=== PATIENT | female | born 1945 | race Caucasian/White ===

== ENCOUNTER 2019-06-24 16:56 | Emergency (ER) | payer OTHER ==
[~2019-06-24] VITALS: Ht 147.3 cm; Wt 61.2 kg
[2019-06-24 16:57] VITALS: BP_SYST 155
--- NOTE | 2019-06-24 17:00 | NUR ---
Pt presents to ER with L facial dropping/weakness for 1 to 2 weeks, speaking in full sentences, intact ROM, no deficits noted, skin pink and warm, ambulatory , respirations even and unlabored, cap refill <3, BP elevated, MD notified, will cont to monitor.
--- NOTE | 2019-06-24 17:00 | NUR ---
Patient to ER bed H1 to gown for evaluation. Side rails up.
--- NOTE | 2019-06-24 17:03 | NUR ---
Dr haji at bedside examining patient
--- NOTE | 2019-06-24 17:06 | NUR ---
Pt off the unit for CT
[2019-06-24] MEDS ORDERED: cloNIDine HCL 0.1 MG TABLET PO ONE (17:15)
--- NOTE | 2019-06-24 17:17 | NUR ---
Pt returned from CT on stable condition
[2019-06-24 17:43] LABS: EOSINOPHILS # (AUTO) 0.1 K/uL (0.0-0.4); EOSINOPHILS % (AUTO) 2.9 % (0.0-4.0); HEMATOCRIT 41.6 % (36-48); LYMPHOCYTES # (AUTO) 1.7 K/uL (1.0-5.5); LYMPHOCYTES % (AUTO) 42.5 % (20.5-51.5); MEAN CORPUSCULAR HEMOGLOBIN 30 pg (27-31); MEAN CORPUSCULAR HGB CONC 34 % (32-36); MEAN CORPUSCULAR VOLUME 88 fL (79.0-98.0); MONOCYTES # (AUTO) 0.3 K/uL (0.0-1.0); NEUTROPHILS # (AUTO) 1.8 K/uL (1.8-7.7); NEUTROPHILS % (AUTO) 45.6 % (40.0-70.0); PLATELET COUNT (AUTO) 208 K/uL (130-430); RED BLOOD CELL COUNT(AUTO) 4.75 MIL/uL (4.2-6.2); RED CELL DISTRIBUTION WIDTH 14.5 % (9.0-15.0)
[2019-06-24 17:49] LABS: ANION GAP 5 (5-15); CALCIUM 10.1 mg/dL (8.4-11.0); CHLORIDE 105 mmol/L (98-107); CREATININE 0.91 mg/dL (0.55-1.30); GLUCOSE 117 mg/dL (70-99); POTASSIUM 3.9 mmol/L (3.5-5.1); SODIUM SERUM 138 mmol/L (136-145); UREA NITROGEN, BLOOD 24 mg/dL (8-21)
[2019-06-24 17:51] LABS: PROTHROMBIN TIME 10.1 SECS (9.5-12.5)
[2019-06-24 17:54] LABS: ALANINE AMINOTRANSFERASE 26 U/L (12-78); ALBUMIN 3.8 g/dL (3.4-4.8); ASPARTATE AMINOTRANSFERASE 20 U/L (10-37); TOTAL BILIRUBIN 0.4 mg/dL (0.0-1.0)
[2019-06-24 18:27] VITALS: BP_SYST 111
--- NOTE | 2019-06-24 18:27 | NUR ---
Patient given written and verbal discharge instructions and verbalizes understanding. ER MD discussed with patient the results and treatment provided. Patient in stable condition. ID arm band removed. Rx of Prednisone, Tylenol and Acyclovir given. Patient educated on pain management and to follow up with PMD. Pain Scale 0. Opportunity for questions provided and answered. Medication side effect fact sheet provided.
== END 2019-06-24 18:27 | disposition home or self-care (01) ==
LOC: SED 16:56
DX: G51.0 Bell's palsy (principal); F41.9 Anxiety disorder, unspecified; R51 Headache; Z88.0 Allergy status to penicillin
CPT/HCPCS: 36415; 70450-TC; 80053; 84484; 85025; 85610-TC; 85730-TC; 99284